=== PATIENT | male | born 1990 | race Caucasian/White ===

== ENCOUNTER 2017-04-03 12:08 | Inpatient (IN) | payer BC, OTHER ==
[~2017-04-03] VITALS: Ht 182.9 cm; Wt 87.1 kg
[2017-04-03 12:08] VITALS: BP_SYST 122
[2017-04-03] MEDS ORDERED: NACL 0.9% 1,000 ML IV ONE ×2 (12:45→14:00)
[2017-04-03 12:47] LABS: BASOPHILS % (AUTO) 0.1 % (0.0-2.0); HEMATOCRIT 41.8 % (36-54); HEMOGLOBIN 14.2 g/dL (14.0-18.0); LYMPHOCYTES # (AUTO) 1.1 K/uL (1.0-5.5); LYMPHOCYTES % (AUTO) 8.3 % (20.5-51.5); MEAN CORPUSCULAR HEMOGLOBIN 32 pg (27-31); MEAN CORPUSCULAR HGB CONC 34 % (32-36); MEAN CORPUSCULAR VOLUME 93 fL (79.0-98.0); MONOCYTES # (AUTO) 0.9 K/uL (0.0-1.0); MONOCYTES % (AUTO) 6.6 % (1.7-9.3); NEUTROPHILS # (AUTO) 11.3 K/uL (1.8-7.7); PLATELET COUNT (AUTO) 316 K/uL (130-430); RED BLOOD CELL COUNT(AUTO) 4.48 MIL/uL (4.2-6.2); WHITE BLOOD COUNT (AUTO) 13.3 K/uL (4.8-10.8)
[2017-04-03 12:53] LABS: CALCIUM 8.7 mg/dL (8.4-11.0); CREATININE 1.66 mg/dL (0.55-1.30); POTASSIUM 3.8 mmol/L (3.5-5.1)
[2017-04-03 12:58] LABS: ALBUMIN 4.1 g/dL (3.4-4.8); TOTAL BILIRUBIN 1.4 mg/dL (0.0-1.0)
[2017-04-03] MEDS ORDERED: INSULIN REGULAR, HUMAN 10 UNITS/0.1 ML INJ IVP ONE (13:15)
[2017-04-03] MEDS ORDERED: INSU100V11 SQ (14:22)
[2017-04-03] MEDS ORDERED: INSU200I SQ (14:22)
[2017-04-03] MEDS ORDERED: INSULIN REGULAR, HUMAN 100 UNITS/ML, 10 ML VIAL (novoLIN R) SUBCUT PRN (14:30)
[2017-04-03] MEDS: NACL 0.9% 1,000 ML IV SCH ×2 (16:23→23:16)
[2017-04-03 16:28] VITALS: BP_SYST 114
[2017-04-03 19:40] VITALS: BP_SYST 117
[2017-04-03] MEDS ORDERED: ONDANSETRON HCL 4 MG/2 ML VIAL IVP PRN (19:45)
[2017-04-03] MEDS ORDERED: INSULIN REGULAR, HUMAN 100 UNITS in NS 99 ML IV SCH ×2 (19:52)
[2017-04-03 20:19] LABS: AMYLASE 317 U/L (0-100)
[2017-04-03 20:20] LABS: CALCIUM 8.2 mg/dL (8.4-11.0); CREATININE 1.41 mg/dL (0.55-1.30); POTASSIUM 3.9 mmol/L (3.5-5.1)
[2017-04-03 20:24] LABS: ALBUMIN 3.6 g/dL (3.4-4.8); TOTAL BILIRUBIN 0.8 mg/dL (0.0-1.0)
[2017-04-03 20:32] LABS: LIPASE 2987 U/L (73-393)
[2017-04-03] MEDS ORDERED: INSULIN GLARGINE 100 UNITS/ML 10 ML VIAL SUBCUT ONE (21:00)
[2017-04-03] MEDS: INSULIN ASPART 100 UNITS/ML, 10 ML VIAL (NovoLOG) SUBCUT PRN (22:09)
[2017-04-03 23:38] VITALS: BP_SYST 119
[2017-04-04 04:25] VITALS: BP_SYST 121
[2017-04-04 04:29] LABS: BILIRUBIN,URINE NEGATIVE (NEGATIVE); BLOOD, URINE NEGATIVE (NEGATIVE); CLARITY/URINE CLEAR (CLEAR); COLOR,URINE YELLOW (YELLOW); GLUCOSE,URINE 3+ (NEGATIVE); KETONES,URINE 2+ (NEGATIVE); LEUKOCYTE ESTERASE ,URINE NEGATIVE (NEGATIVE); NITRITE, URINE NEGATIVE (NEGATIVE); PROTEIN URINE NEGATIVE (NEGATIVE); UROBILINOGEN,URINE 0.2 (0.2-1.0)
[2017-04-04 04:40] LABS: BACTERIA,URINE FEW /HPF (None Seen); MUCUS,URINE None Seen /LPF (None Seen); RBC,URINE 0-3 /HPF (0-3); WBC,URINE 0-3 /HPF (0-3)
[2017-04-04] MEDS ORDERED: INSULIN REGULAR, HUMAN 100 UNITS in NS 99 ML IV SCH ×2 (05:52)
[2017-04-04] MEDS: NACL 0.9% 1,000 ML IV SCH ×4 (05:57→23:50)
[2017-04-04] MEDS: INSULIN ASPART 100 UNITS/ML, 10 ML VIAL (NovoLOG) SUBCUT PRN ×4 (06:37→21:53)
[2017-04-04 07:36] LABS: ALBUMIN 3.3 g/dL (3.4-4.8); CALCIUM 8.2 mg/dL (8.4-11.0); CREATININE 1.19 mg/dL (0.55-1.30); POTASSIUM 3.6 mmol/L (3.5-5.1); TOTAL BILIRUBIN 0.7 mg/dL (0.0-1.0)
[2017-04-04 07:56] VITALS: BP_SYST 124
[2017-04-04 12:03] LABS: AMYLASE 240 U/L (0-100); CHOLESTEROL 137 mg/dL (<200); HDL CHOLESTEROL 32 mg/dL (>45); LDL CHOLESTEROL 87 mg/dL (<100); TRIGLYCERIDES 219 mg/dL (30-150)
[2017-04-04 12:07] VITALS: BP_SYST 122
[2017-04-04 12:25] LABS: LIPASE 2490 U/L (73-393)
[2017-04-04 16:20] VITALS: BP_SYST 127
[2017-04-04 20:00] VITALS: BP_SYST 127
[2017-04-05 01:28] VITALS: BP_SYST 129
[2017-04-05 06:29] VITALS: BP_SYST 130
[2017-04-05 06:33] LABS: BASOPHILS % (AUTO) 0.2 % (0.0-2.0); EOSINOPHILS % (AUTO) 0.7 % (0.0-4.0); HEMOGLOBIN 13.5 g/dL (14.0-18.0); LYMPHOCYTES # (AUTO) 1.7 K/uL (1.0-5.5); LYMPHOCYTES % (AUTO) 38.4 % (20.5-51.5); MEAN CORPUSCULAR HEMOGLOBIN 32 pg (27-31); MEAN CORPUSCULAR HGB CONC 35 % (32-36); MEAN CORPUSCULAR VOLUME 93 fL (79.0-98.0); MONOCYTES # (AUTO) 0.3 K/uL (0.0-1.0); MONOCYTES % (AUTO) 7.4 % (1.7-9.3); NEUTROPHILS # (AUTO) 2.4 K/uL (1.8-7.7); NEUTROPHILS % (AUTO) 53.3 % (40.0-70.0); PLATELET COUNT (AUTO) 193 K/uL (130-430); RED BLOOD CELL COUNT(AUTO) 4.21 MIL/uL (4.2-6.2)
[2017-04-05 06:56] LABS: WHITE BLOOD COUNT (AUTO) 4.4 K/uL (4.8-10.8)
[2017-04-05 07:11] LABS: ALBUMIN 3.2 g/dL (3.4-4.8); CALCIUM 8.7 mg/dL (8.4-11.0); CREATININE 0.77 mg/dL (0.55-1.30); TOTAL BILIRUBIN 0.8 mg/dL (0.0-1.0)
[2017-04-05 08:00] VITALS: BP_SYST 112
[2017-04-05 12:08] VITALS: BP_SYST 136
[2017-04-05] MEDS: INSULIN ASPART 100 UNITS/ML, 10 ML VIAL (NovoLOG) SUBCUT PRN (12:38)
[2017-04-05] MEDS ORDERED: POTASSIUM CHLORIDE 20 MEQ TAB.PRT.SR PO ONE (13:45)
[2017-04-05 13:54] VITALS: BP_SYST 100
== END 2017-04-05 16:00 | disposition home or self-care (01) | DRG 638 ==
LOC: SED 12:08 → STU 14:20 → SMU 04-04 16:16
DX: E11.65 Type 2 diabetes mellitus with hyperglycemia (principal); E87.2 Acidosis; Z79.4 Long term (current) use of insulin
CPT/HCPCS: 36415; 76700-TC; 80053; 80061; 81000-TC; 82150-TC; 82962; 83036; 83605; 83690-TC; 84302-TC; 85025; 96361; 96374; 99285; J1815; J2405; J7030; J7050